=== PATIENT | female | born 1970 | race Caucasian/White ===

== ENCOUNTER 2024-07-14 02:24 | Emergency (ER) | payer OTHER, SELFPAY ==
[2024-07-14] VITALS (25 sets, daily range): BP systolic 94–132; BP diastolic 58–92; PULSE 92; TEMP 36.9; O2SAT 91–98; BMI 29.1
--- NOTE | 2024-07-14 02:40 | ED_ITS ---
HPI - Nausea/Vomiting/Diarrhea General Chief complaint: Nausea/Vomiting/Diarrhea Stated complaint: Shortness of Breath Vomiting Time Seen by Provider: 07/14/24 02:36 Source: patient Mode of arrival: Wheelchair Limitations: no limitations History of Present Illness HPI Narrative: complains of nausea and recurrent vomiting since she used Ozempic 4 days ago. States this is the first time she had taken Ozempic. no fever or diarrhea. No chest pain or dyspnea. Not able to keep anything down Related Data Allergies Allergy/AdvReac Type Severity Reaction Status Date / Time No Known Drug Allergies Allergy Verified 07/14/24 02:30 PFSH PFSH Social History Little interest or pleasure in doing things: not at all Feeling down, depressed, or hopeless: not at all Exam Constitutional Vital Signs, click to edit/add: Last Vital Signs Temp 98.4 F 07/14/24 02:30 Pulse 92 H 07/14/24 02:30 Resp 18 07/14/24 02:30 BP 120/92 H 07/14/24 02:30 Pulse Ox 98 07/14/24 02:30 O2 Del Method Room Air 07/14/24 02:30 Course Vital Signs Vital signs: Vital Signs Temperature 98.4 F 07/14/24 02:30 Pulse Rate 92 H 07/14/24 02:30 Respiratory Rate 18 07/14/24 02:30 Blood Pressure 120/92 H 07/14/24 02:30 Pulse Oximetry 98 07/14/24 02:30 Oxygen Delivery Method Room Air 07/14/24 02:30 Temperature 98.4 F 07/14/24 02:30 Pulse Rate 92 H 07/14/24 02:30 Respiratory Rate 18 07/14/24 02:30 Blood Pressure 120/92 H 07/14/24 02:30 Pulse Oximetry 98 07/14/24 02:30 Oxygen Delivery Method Room Air 07/14/24 02:30 MDM - Nausea/Vomiting/Diarrhea MDM Narrative Medical decision making narrative: after she used Ozempic for the first time she developed nausea and vomiting on and off over past 4 days. No diarrhea. No chest pain. Not able to keep anything down. Abdomen nontender. CT abdomen without acute findings. labs with evidence of demargination with WBC 21,000. she also has evidence of volume depletion with elevated HGB and increased BUN/ creat. Hydrated and treated with zofran and afterwards able to keep down ice chips. Feeling better. lactic acid elevated and repeat lactic after hydration pending. Did have recurrence of mild nausea but no vomiting and treated with Phenergan. she is resting comfortably and in no distress at this time repeat lactic returns as normal. she is now complaining of a migraine headache. Last migraine about one month ago. she is receiving Phenergan for her nausea. This may help her migraine as well. Will transfer care to oncoming physician. Lab Data Labs: Lab Results 07/14/24 07/14/24 Range/Units 02:39 05:55 WBC 21.1 H (4.0-11.0) 10^3/uL RBC 5.95 H (4.20-5.40) 10^6/uL Hgb 17.9 H (12.0-16.0) g/dL Hct 51.1 H (36.0-48.0) % MCV 85.9 (81.0-99.0) fL MCH 30.1 (26.7-34.0) pg MCHC 35.0 (29.9-35.2) g/dL RDW 13.4 (11.0-15.0) % Plt Count 370 (150-450) 10^3/uL MPV 9.9 (9.5-13.5) fL Neut % (Auto) 75.1 H (43.0-75.0) % Lymph % (Auto) 16.9 L (20.5-60.0) % [place] % (Auto) 7.0 (1.7-12.0) % Eos % (Auto) 0.1 L (0.9-7.0) % Baso % (Auto) 0.4 (0.2-2.0) % Neut # (Auto) 15.9 H (1.4-6.5) 10^3/uL Lymph # (Auto) 3.6 (1.2-3.8) 10^3/uL [place] # (Auto) 1.5 H (0.3-0.8) 10^3/uL Eos # (Auto) 0.0 (0.0-0.7) 10^3/uL Baso # (Auto) 0.1 (0.0-0.1) 10^3/uL Abs Immat Gran (auto) 0.10 H (0.00-0.03) 10^3/uL Imm/Tot Granulo (auto) 0.5 (0.0-0.5) % Sodium 141 (136-145) mmol/L Potassium 3.0 L (3.5-5.1) mmol/L Chloride 93 L (98-107) mmol/L Carbon Dioxide 26.0 (21.0-32.0) mmol/L Anion Gap 25.0 BUN 26.0 H (7.0-18.0) mg/dL Creatinine 1.57 H (0.55-1.02) mg/dL Est GFR ( Amer) 42 L (>=60 mL/min/1.73m^2) Est GFR (Non-Af Amer) 34 L (>=60 mL/min/1.73m^2) BUN/Creatinine Ratio 16.6 Glucose 135 H (74-106) mg/dL Lactate 4.2 H* 1.2 (0.4-2.0) mmol/L Calcium 10.3 H (8.5-10.1) mg/dL Total Bilirubin 1.2 H (0.2-1.0) mg/dL AST 23 (15-37) U/L ALT 29 (14-59) U/L Alkaline Phosphatase 95 (46-116) U/L Troponin I High Sens 24.9 (4.0-51.3) pg/mL Total Protein 8.6 H (6.4-8.2) g/dL Albumin 4.6 (3.4-5.0) g/dL Globulin 4.0 g/dL Albumin/Globulin Ratio 1.1 Lipase 18.0 (16.0-77.0) U/L Discharge Plan Discharge Patient Disposition: Still a Patient
[2024-07-14 02:49] LABS: Basophils Absolute Auto 0.1 10^3/uL (0.0-0.1); Basophils Percent Auto 0.4 % (0.2-2.0); Eosinophils Percent Auto 0.1 % (0.9-7.0); Hematocrit 51.1 % (36.0-48.0); Hemoglobin 17.9 g/dL (12.0-16.0); Immature Granulocytes Pct Auto 0.5 % (0.0-0.5); Lymphocytes Absolute Auto 3.6 10^3/uL (1.2-3.8); Lymphocytes Percent Auto 16.9 % (20.5-60.0); Mean Corpuscular Hemoglobin 30.1 pg (26.7-34.0); Mean Corpuscular Volume 85.9 fL (81.0-99.0); Mean Platelet Volume 9.9 fL (9.5-13.5); Monocytes Absolute Auto 1.5 10^3/uL (0.3-0.8); Neutrophils Absolute Auto 15.9 10^3/uL (1.4-6.5); Neutrophils Percent Auto 75.1 % (43.0-75.0); Platelet Count 370 10^3/uL (150-450); Red Blood Count 5.95 10^6/uL (4.20-5.40); Red Cell Distribution Width 13.4 % (11.0-15.0); White Blood Count 21.1 10^3/uL (4.0-11.0)
[2024-07-14] MEDS: ONDANSETRON PF 4 MG/2 ML VIAL IV (02:55)
[2024-07-14] MEDS: 0.9 % SODIUM CHLORIDE 1,000 ML 999 ML IV ×2 (02:55→04:06)
--- NOTE | 2024-07-14 03:11 | PC.NURSE ---
this patient is more relaxed and now able to sit still, this patient voices i feel better now
[2024-07-14 03:12] LABS: Lactate/Lactic Acid 4.2 mmol/L (0.4-2.0)
[2024-07-14 03:16] LABS: Alanine Aminotransferase 29 U/L (14-59); Albumin Globulin Ratio 1.1; Albumin Level 4.6 g/dL (3.4-5.0); Alkaline Phosphatase 95 U/L (46-116); Aspartate Amino Transferase 23 U/L (15-37); BUN Creatinine Ratio 16.6; Bilirubin Total 1.2 mg/dL (0.2-1.0); Calcium 10.3 mg/dL (8.5-10.1); Chloride 93 mmol/L (98-107); Estimated GFR (African America 42 (>=60 mL/min/1.73m^2); Estimated GFR (Non-African Ame 34 (>=60 mL/min/1.73m^2); Glucose 135 mg/dL (74-106); Sodium 141 mmol/L (136-145); Total Protein 8.6 g/dL (6.4-8.2); Troponin I High Sensitivity 24.9 pg/mL (4.0-51.3)
--- NOTE | 2024-07-14 03:48 | PC.NURSE ---
this patient updated repeat blood draw at 05:41 and 2nd bag of iv fluids. i also told this patient no fluids by mouth, Dr Be is going to order a ct abdomen
[2024-07-14] MEDS: POTASSIUM CHLORIDE IN 0.9%NACL 1,000 ML 100 ML IV (04:06)
[2024-07-14] MEDS: KETOROLAC TROMETHAMINE 30 MG/ML VIAL IVP (05:09)
[2024-07-14] MEDS: PROMETHAZINE HCL 25 MG in 0.9 % SODIUM CHLORIDE 50 ML 204 MG IV (06:11)
[2024-07-14 06:23] LABS: Lactate/Lactic Acid 1.2 mmol/L (0.4-2.0)
[2024-07-14] MEDS: HYDROMORPHONE HCL 0.5 MG/0.5 ML SYRINGE IVP (07:31)
== END 2024-07-14 07:47 | disposition home or self-care (01) ==
PROVIDERS: Emergency Provider Internal Medicine
DX: R11.2 Nausea with vomiting, unspecified (principal); R10.9 Unspecified abdominal pain; G43.909 Migraine, unspecified, not intractable, without status migrainosus
CPT/HCPCS: 36415; 74177; 80053; 81001; 83605; 83690; 84484; 85025; 96361; 96365; 96366; 96368; 96375; 99284; J1171; J1885; J2405; J2550; Q9966